=== PATIENT | female | born 1975 | race African-American/Black ===

== ENCOUNTER 2016-06-30 14:38 | Emergency (ER) | payer OTHER ==
[~2016-06-30 14:38] MED LIST: ACET50TA PO; IBUP80TA PO; PNV-CAP5 PO
--- NOTE | 2016-06-30 16:38 | REP ---
Chest x-ray: Two views. History: Chest pain . Comparison study: No comparison study . Findings: The lungs are well inflated and free of infiltrate. The pleural angles are sharp. The heart size is normal. Pulmonary vasculature is not increased. No significant bony abnormality is seen. Impression: Negative chest x-ray. Signed by Collin Aponte MD 06/30/2016 04:29 P
--- NOTE | 2016-06-30 16:52 | EDDOCDS ---
Nurse's Notes [facility] Name: Zuleyma Hatch Age: 40 yrs Sex: Female : 1975 Arrival Date: 06/30/2016 Time: 14:38 Bed PR Private MD: UTNaif ARGUELLO Diagnosis: Chest pain, unspecified-COSTOCHONDRITIS Presentation: 06/30 14:42 Presenting complaint: Patient states: Chest pain for the past few days, worsens with ck1 deep breathing. Aspirin was not taken prior to arrival. Adult Sepsis Screening: The patient does not have new or worsening altered mentation. Patient's respiratory rate is less than 22. Systolic blood pressure is greater than 100. Patient has a qSOFA score of 0- Negative Sepsis Screen. Suicide/Homicide risk assessment- the patient denies having any suicidal and/or homicidal ideations and does not present with any other emotional, behavioral or mental health complaints. 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 Transition of care: patient was not received from another setting of care. 14:42 Acuity: PANCHO Level 3 ck1 14:42 Method Of Arrival: Walkin/Carried/Asstd ck1 Triage Assessment: 14:44 General: Appears in no apparent distress, comfortable, Behavior is appropriate for age, ck1 cooperative. Pain: Location: chest Pain currently is 5 out of 10 on a pain scale. HIV screening NA for this visit Offered previously. Neurological: Level of Consciousness is awake, alert, obeys commands, Oriented to person, place, time. Cardiovascular: Chest pain is described as Pain is 5 out of 10 on a pain scale. radiates jaw(s) episodes are intermittent. Respiratory: Respiratory effort is unlabored, Respiratory pattern is regular, symmetrical, Denies shortness of breath. GI: Denies nausea, vomiting. Derm: Skin is pink, warm & dry. 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 hydrochlorothiazide 25 mg Oral tab 1 tab once daily (Last dose: 06/29/2016) 2. mycardis 40 mg daily (Last dose: 06/29/2016) - PMHx: Hypertension; - PSHx: left knee scope; - Social history: Smoking status: Patient states was never smoker of tobacco. No barriers to communication noted, The patient speaks fluent Yoruba, Speaks appropriately for age. - Family history: Not pertinent. - : The pt / caregiver states he / she is not on anticoagulants. Home medication list is obtained from the patient. - Exposure Risk Screening:: None identified. Screenin:50 Screening information is obtained from the patient. Fall risk: No risks identified. ck1 Assistance ADL's: requires no assistance with activities of daily living. Abuse/DV Screen: The patient / caregiver reports he/she is: not in a situation that causes fear, pain or injury. Nutritional screening: No deficits noted. Advance Directives: Currently, there is no health care proxy. home support is adequate. Assessment: 16:51 General: Appears in no apparent distress, comfortable, Behavior is appropriate for age, ck1 cooperative. Pain: Location: chest Pain currently is 5 out of 10 on a pain scale. Neurological: Level of Consciousness is awake, alert, obeys commands, Oriented to person, place, time. Cardiovascular: Rhythm is sinus rhythm. Respiratory: Respiratory effort is even, unlabored, Respiratory pattern is regular, symmetrical. Derm: Skin is intact, is healthy with good turgor, Skin is pink, warm & dry. Vital Signs: 14:41 BP 136 / 77; Pulse 74; Resp 16; Temp 98.6; Pulse Ox 100% ; Weight 73.48 kg; Height 67 elp in. (170.18 cm); Pain 5/10; 16:39 BP 117 / 66; Pulse 74; Resp 18; Temp 97.6(O); Pulse Ox 100% on R/A; Pain 5/10; ct3 14:41 Body Mass Index 25.37 (73.48 kg, 170.18 cm) elp Vitals: 14:41 Log In Time: June 30, 2016 at 14:38. RN notified that patient meets Red Flag elp criteria. ED Course: 14:40 Patient visited by Susan Wilson PCA. elp 14:40 Patient moved to Waiting elp 14:41 [facility], Naif Wilson is Private Physician. elp 14:41 Patient visited by Susan Wilson PCA. elp 14:41 Patient moved to Pre RCE elp 14:42 Triage Initiated ck1 14:45 Patient moved to PD ck1 15:10 Patient visited by Evelyn Cruz PCA. ct3 15:10 EKG done. (by ED staff). Reviewed by Matt Marlow MD. ct3 15:13 Patient moved to Triage 1 ck1 15:38 [facility] dt4 15:38 Matt Marlow MD is Attending Physician. dt4 15:38 Patient visited by Yane Yi PA-C. dt4 15:53 Patient moved to TR2 ct3 16:10 Patient visited by Evelyn Cruz PCA. ct3 16:35 Patient moved to PR1 / 25 dwg 16:40 Patient visited by Evelyn Cruz PCA. ct3 16:50 The patient / caregiver is instructed regarding the plan of care and ED course. Cardiac ck1 monitoring not applicable on this patient. 16:50 No IV's were initiated during this patient's visit. No procedures done that require ck1 assistance. Order Results: There are currently no results for this order. Outcome: 16:45 Discharge ordered by Provider. dt4 16:50 Discharge Assessment: Patient awake, alert and oriented x 3. No cognitive and/or ck1 functional deficits noted. Patient verbalized understanding of disposition instructions. patient administered narcotics - no. The following High Risk Discharge criteria are identified: None. Discharged to home ambulatory. Condition: stable. Discharge instructions given to patient, Instructed on discharge instructions, follow up and referral plans. medication usage, Demonstrated understanding of instructions, medications, Pt was receptive of discharge instructions/ teaching. No special radiology studies were completed. Property :Personal belongings accompany Pt. 16:51 Patient left the ED. ck1 Signatures: Jam aSnchez, RN RN [facility] Roxanna HagenRN RN ck1 Evelyn Cruz PCA AUTOMATIC LEHR OPERATOR ct3 Susan Wilson PCA AUTOMATIC LEHR OPERATOR elp Yane Yi PA-C PA-C dt4 MTDD
--- NOTE | 2016-06-30 16:52 | EDDOCDS ---
Physician Documentation [facility] Name: Zuleyma Hatch Age: 40 yrs Sex: Female : 1975 Arrival Date: 06/30/2016 Time: 14:38 Bed PR Private MD: NMNaif ARGUELLO Disposition: 06/30/16 16:45 Discharged to Home/Self Care. Impression: Chest pain, unspecified - COSTOCHONDRITIS. - Condition is Stable. - Discharge Instructions: Chest Wall Pain. - Prescriptions for Naprosyn 500 mg Oral Tablet - take 1 tablet by ORAL route every 12 hours As needed take with food; 30 tablet. - Medication Reconciliation, Local Pharmacy Hours form. - Follow up: Emergency Department; When: As needed; Reason: Worsening of conditions. Follow up: Private Physician; When: 2 - 3 days; Reason: Wound/Symptom Recheck, Recheck today's complaints, Continuance of care. - Problem is new. - Symptoms are unchanged. Historical: - Allergies: No known drug Allergies; - Home Meds: 1. hydrochlorothiazide 25 mg Oral tab 1 tab once daily (Last dose: 06/29/2016) 2. mycardis 40 mg daily (Last dose: 06/29/2016) - PMHx: Hypertension; - PSHx: left knee scope; - Social history: Smoking status: Patient states was never smoker of tobacco. No barriers to communication noted, The patient speaks fluent Spanish, Speaks appropriately for age. - Family history: Not pertinent. - : The pt / caregiver states he / she is not on anticoagulants. Home medication list is obtained from the patient. - Exposure Risk Screening:: None identified. 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 (170.18 cm); Pain 5/10; 16:39 BP 117 / 66; Pulse 74; Resp 18; Temp 97.6(O); Pulse Ox 100% on R/A; Pain 5/10; ct3 14:41 Body Mass Index 25.37 (73.48 kg, 170.18 cm) elp MDM: 14:49 ECG WITH READING ER PHYS+CARDIAG ordered. EDMS 15:52 Chest, 2 View (pa\E\lat) Ordered. EDMS 15:54 Financial registration complete. shubham Signatures: Dispatcher [employer] EDMS Roxanna Hagen RN RN ck1 Yane Yi, PAVeronicaC PA-C dt4 Odilia Candelaria MTDD
--- NOTE | 2016-07-01 09:19 | ECGEPIP ---
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
--- NOTE | 2016-07-02 17:52 | EDDOCDS ---
Physician Documentation [facility] Name: Zuleyma Hatch Age: 40 yrs Sex: Female : 1975 Arrival Date: 06/30/2016 Time: 14:38 Bed PR Private MD: GANaif ARGUELLO Disposition: 06/30/16 16:45 Discharged to Home/Self Care. Impression: Chest pain, unspecified - COSTOCHONDRITIS. - Condition is Stable. - Discharge Instructions: Chest Wall Pain. - Prescriptions for Naprosyn 500 mg Oral Tablet - take 1 tablet by ORAL route every 12 hours As needed take with food; 30 tablet. - Medication Reconciliation, Local Pharmacy Hours form. - Follow up: Emergency Department; When: As needed; Reason: Worsening of conditions. Follow up: Private Physician; When: 2 - 3 days; Reason: Wound/Symptom Recheck, Recheck today's complaints, Continuance of care. - Problem is new. - Symptoms are unchanged. Historical: - Allergies: No known drug Allergies; - Home Meds: 1. hydrochlorothiazide 25 mg Oral tab 1 tab once daily (Last dose: 06/29/2016) 2. mycardis 40 mg daily (Last dose: 06/29/2016) - PMHx: Hypertension; - PSHx: left knee scope; - Social history: Smoking status: Patient states was never smoker of tobacco. No barriers to communication noted, The patient speaks fluent Lithuanian, Speaks appropriately for age. - Family history: Not pertinent. - : The pt / caregiver states he / she is not on anticoagulants. Home medication list is obtained from the patient. - Exposure Risk Screening:: None identified. 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 (170.18 cm); Pain 5/10; 16:39 BP 117 / 66; Pulse 74; Resp 18; Temp 97.6(O); Pulse Ox 100% on R/A; Pain 5/10; ct3 14:41 Body Mass Index 25.37 (73.48 kg, 170.18 cm) elp MDM: 14:49 ECG WITH READING ER PHYS+CARDIAG ordered. EDMS 15:52 Chest, 2 View (pa\E\lat) Ordered. EDMS 15:54 Financial registration complete. gjb 17:03 [facility] Payment Agreement was scanned into [employer] and attached to record. gjb 07/01 12:00 T-Sheet-- Draft Copy was scanned into [employer] and attached to record. gb 12:15 ECG/EKG was scanned into [employer] and attached to record. gb Signatures: Dispatcher [employer] EDMS Soco Godfrey, Reg Reg gb Larissa-Roxanna Armendariz,RN RN ck1 Yane Yi, PAVeronicaC PA-C stella4 Odilia Candelaria The chart was reviewed and I authenticate all verbal orders and agree with the evaluation and treatment provided.Attachments: 06/30 17:03 [facility] Payment Agreement b 07/01 12:00 T-Sheet-- Draft Copy gb 12:15 ECG/EKG gb Chart Complete MTDD
--- NOTE | 2016-07-02 17:52 | EDDOCDS ---
Nurse's Notes [facility] Name: Zuleyma Zimmerman Age: 40 yrs Sex: Female : 1975 Arrival Date: 06/30/2016 Time: 14:38 Bed PR Private MD: FLNaif ARGUELLO Diagnosis: Chest pain, unspecified-COSTOCHONDRITIS Presentation: 06/30 14:42 Presenting complaint: Patient states: Chest pain for the past few days, worsens with ck1 deep breathing. Aspirin was not taken prior to arrival. Adult Sepsis Screening: The patient does not have new or worsening altered mentation. Patient's respiratory rate is less than 22. Systolic blood pressure is greater than 100. Patient has a qSOFA score of 0- Negative Sepsis Screen. Suicide/Homicide risk assessment- the patient denies having any suicidal and/or homicidal ideations and does not present with any other emotional, behavioral or mental health complaints. 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 Transition of care: patient was not received from another setting of care. 14:42 Acuity: PANCHO Level 3 ck1 14:42 Method Of Arrival: Walkin/Carried/Asstd ck1 Triage Assessment: 14:44 General: Appears in no apparent distress, comfortable, Behavior is appropriate for age, ck1 cooperative. Pain: Location: chest Pain currently is 5 out of 10 on a pain scale. HIV screening NA for this visit Offered previously. Neurological: Level of Consciousness is awake, alert, obeys commands, Oriented to person, place, time. Cardiovascular: Chest pain is described as Pain is 5 out of 10 on a pain scale. radiates jaw(s) episodes are intermittent. Respiratory: Respiratory effort is unlabored, Respiratory pattern is regular, symmetrical, Denies shortness of breath. GI: Denies nausea, vomiting. Derm: Skin is pink, warm & dry. 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 hydrochlorothiazide 25 mg Oral tab 1 tab once daily (Last dose: 06/29/2016) 2. mycardis 40 mg daily (Last dose: 06/29/2016) - PMHx: Hypertension; - PSHx: left knee scope; - Social history: Smoking status: Patient states was never smoker of tobacco. No barriers to communication noted, The patient speaks fluent Kinyarwanda, Speaks appropriately for age. - Family history: Not pertinent. - : The pt / caregiver states he / she is not on anticoagulants. Home medication list is obtained from the patient. - Exposure Risk Screening:: None identified. Screenin:50 Screening information is obtained from the patient. Fall risk: No risks identified. ck1 Assistance ADL's: requires no assistance with activities of daily living. Abuse/DV Screen: The patient / caregiver reports he/she is: not in a situation that causes fear, pain or injury. Nutritional screening: No deficits noted. Advance Directives: Currently, there is no health care proxy. home support is adequate. Assessment: 16:51 General: Appears in no apparent distress, comfortable, Behavior is appropriate for age, ck1 cooperative. Pain: Location: chest Pain currently is 5 out of 10 on a pain scale. Neurological: Level of Consciousness is awake, alert, obeys commands, Oriented to person, place, time. Cardiovascular: Rhythm is sinus rhythm. Respiratory: Respiratory effort is even, unlabored, Respiratory pattern is regular, symmetrical. Derm: Skin is intact, is healthy with good turgor, Skin is pink, warm & dry. Vital Signs: 14:41 BP 136 / 77; Pulse 74; Resp 16; Temp 98.6; Pulse Ox 100% ; Weight 73.48 kg; Height 67 elp in. (170.18 cm); Pain 5/10; 16:39 BP 117 / 66; Pulse 74; Resp 18; Temp 97.6(O); Pulse Ox 100% on R/A; Pain 5/10; ct3 14:41 Body Mass Index 25.37 (73.48 kg, 170.18 cm) elp Vitals: 14:41 Log In Time: June 30, 2016 at 14:38. RN notified that patient meets Red Flag elp criteria. ED Course: 14:40 Patient visited by Susan Wilson PCA. elp 14:40 Patient moved to Waiting elp 14:41 [facility], Naif Wilson is Private Physician. elp 14:41 Patient visited by Susan Wilson PCA. elp 14:41 Patient moved to Pre RCE elp 14:42 Triage Initiated ck1 14:45 Patient moved to PD ck1 15:10 Patient visited by Evelyn Cruz PCA. ct3 15:10 EKG done. (by ED staff). Reviewed by Matt Marlow MD. ct3 15:13 Patient moved to Triage 1 ck1 15:38 Yane Yi PA-C is PHCP. dt4 15:38 Matt Marlow MD is Attending Physician. dt4 15:38 Patient visited by Yane Yi PA-C. dt4 15:53 Patient moved to TR2 ct3 16:10 Patient visited by Evelyn Cruz PCA. ct3 16:35 Patient moved to PR1 / 25 dwg 16:40 Patient visited by Evelyn Cruz PCA. ct3 16:50 The patient / caregiver is instructed regarding the plan of care and ED course. Cardiac ck1 monitoring not applicable on this patient. 16:50 No IV's were initiated during this patient's visit. No procedures done that require ck1 assistance. 17:03 [facility] [place] was scanned into [employer] and attached to record. gjb 17:30 Chest, 2 View (pa\E\lat) Returned. EDMS 02 09:55 EKG-ADULT Returned. EDMS 12:00 T-Sheet-- Draft Copy was scanned into [employer] and attached to record. gb 12:15 ECG/EKG was scanned into [employer] and attached to record. 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; : 1975 Requested By: Nery Crooks; Order Number: [id number] Reading MD: Nery Crooks; Measurements; Intervals [place]; Rate: 73 P: 66; ND: 156 QRS: 32; QRSD: 78 T: 36; QT: 366; QTc: 406; Interpretive Statements; SINUS RHYTHM; POSSIBLE LEFT ATRIAL ENLARGEMENT; DELAYED R PROGRESSION; NO PRIOR FOR COMPARISON; Electronically Signed On 07-01-2016 9:19:23 EST by Nery Johnson-Post; Radiology Order: Chest, 2 View (pa\E\lat) Test: Chest, 2 View (pa\E\lat) REASON FOR EXAMINATION: Chest Pain; Chest x-ray: Two views.; ; History: Chest pain .; ; Comparison study: No comparison study .; ; Findings: The lungs are well inflated and free of infiltrate. The pleural; angles are sharp. The heart size is normal. Pulmonary vasculature is not; increased. No significant bony abnormality is seen.; ; Impression:; ; Negative chest x-ray.; ; ; Signed by; Collin Aponte MD 06/30/2016 04:29 P; Outcome: 06/30 16:45 Discharge ordered by Provider. dt4 16:50 Discharge Assessment: Patient awake, alert and oriented x 3. No cognitive and/or ck1 functional deficits noted. Patient verbalized understanding of disposition instructions. patient administered narcotics - no. The following High Risk Discharge criteria are identified: None. Discharged to home ambulatory. Condition: stable. Discharge instructions given to patient, Instructed on discharge instructions, follow up and referral plans. medication usage, Demonstrated understanding of instructions, medications, Pt was receptive of discharge instructions/ teaching. No special radiology studies were completed. Property :Personal belongings accompany Pt. 16:51 Patient left the ED. ck1 Signatures: Dispatcher [employer] EDMS Jam Sanchez, RN RN Soco Ramirez, Sanjeev Reg Roxanna ReynaRN RN ck1 Evelyn Cruz, SENIOR SCHEDULER SENIOR SCHEDULER ct3 Patchmiya, Susan, SENIOR SCHEDULER SENIOR SCHEDULER elp Yane Yi, PAVeronicaC PA-C dt4 Odilia Candelaria Chart Complete MTDD
--- NOTE | 2016-07-02 17:52 | EDDOCDS ---
Physician Documentation [facility] Name: Zuleyma Hatch Age: 40 yrs Sex: Female : 1975 Arrival Date: 06/30/2016 Time: 14:38 Bed PR Private MD: KSNaif ARGUELLO Disposition: 06/30/16 16:45 Discharged to Home/Self Care. Impression: Chest pain, unspecified - COSTOCHONDRITIS. - Condition is Stable. - Discharge Instructions: Chest Wall Pain. - Prescriptions for Naprosyn 500 mg Oral Tablet - take 1 tablet by ORAL route every 12 hours As needed take with food; 30 tablet. - Medication Reconciliation, Local Pharmacy Hours form. - Follow up: Emergency Department; When: As needed; Reason: Worsening of conditions. Follow up: Private Physician; When: 2 - 3 days; Reason: Wound/Symptom Recheck, Recheck today's complaints, Continuance of care. - Problem is new. - Symptoms are unchanged. Historical: - Allergies: No known drug Allergies; - Home Meds: 1. hydrochlorothiazide 25 mg Oral tab 1 tab once daily (Last dose: 06/29/2016) 2. mycardis 40 mg daily (Last dose: 06/29/2016) - PMHx: Hypertension; - PSHx: left knee scope; - Social history: Smoking status: Patient states was never smoker of tobacco. No barriers to communication noted, The patient speaks fluent Slovak, Speaks appropriately for age. - Family history: Not pertinent. - : The pt / caregiver states he / she is not on anticoagulants. Home medication list is obtained from the patient. - Exposure Risk Screening:: None identified. 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 (170.18 cm); Pain 5/10; 16:39 BP 117 / 66; Pulse 74; Resp 18; Temp 97.6(O); Pulse Ox 100% on R/A; Pain 5/10; ct3 14:41 Body Mass Index 25.37 (73.48 kg, 170.18 cm) elp MDM: 14:49 ECG WITH READING ER PHYS+CARDIAG ordered. EDMS 15:52 Chest, 2 View (pa\E\lat) Ordered. EDMS 15:54 Financial registration complete. gjb 17:03 [facility] Payment Agreement was scanned into [employer] and attached to record. gjb 07/01 12:00 T-Sheet-- Draft Copy was scanned into [employer] and attached to record. gb 12:15 ECG/EKG was scanned into [employer] and attached to record. gb Signatures: Dispatcher [employer] EDMS Soco Godfrey, Reg Reg gb Larissa-Roxanna Armendariz,RN RN ck1 Yane Yi, PAVeronicaC PA-C stella4 Odilia Candelaria The chart was reviewed and I authenticate all verbal orders and agree with the evaluation and treatment provided.Attachments: 06/30 17:03 [facility] Payment Agreement b 07/01 12:00 T-Sheet-- Draft Copy gb 12:15 ECG/EKG gb Chart Complete MTDD
== END 2016-06-30 16:51 | disposition home or self-care (01) ==
LOC: M ED 14:38
DX: M94.0 Chondrocostal junction syndrome [Tietze] (principal); R07.2 Precordial pain; I10 Essential (primary) hypertension; Z79.899 Other long term (current) drug therapy